=== PATIENT | female | born 1945 | race Two or more races ===

== ENCOUNTER 2017-05-10 21:24 | Emergency (ER) | payer MEDICARE, MEDICAID ==
[~2017-05-10] VITALS: Ht 154.9 cm; Wt 63.5 kg
[~2017-05-10 21:24] MED LIST: AMLO5TAB2 PO; ASPI-605 PO; CALC0.253 PO; CARV12.5 PO; CELE200C PO; ESOM10SU PO; FENO134C PO; FERR325T32 PO; GABA300C PO; INSU3INS5; INSU3INS6; METF500T PO; OLOP5DRO; OMEG1CAP55 PO; PRAM2.7P2 SQ; SOLI5TAB2 PO; TEMA15CA5 PO; VALS80TA2 PO
--- NOTE | 2017-05-10 21:57 | NUR ---
PT BIBA#39 FROM HOME, PER PT DAUGHTER PATIENT HAS BEEN ALTERED 1 HOUR ENVIRONMENTAL SERVICES TECH. PT AOX3 SOMALI SPEAKING, DAUGHTER AT BEDSIDE TO TRANSLATE. RR EVEN AND UNLABORED. NO SOB NOTED. NAD NOTED. NO NVD AT THIS TIME. PT NOT DIAPHROETIC. PT WAITING FOR MD CROW[place]. PER EMS PLACED IV ON RIGHT HAND 18G INTACT AND PATENT. NO S/S INFECTION OR INFILTRATION
--- NOTE | 2017-05-10 22:16 | NUR ---
PT TO CT.
--- NOTE | 2017-05-10 22:25 | NUR ---
PT RETURNED FROM CT.
[2017-05-10 22:49] LABS: BASOPHILS % (AUTO) 0.4 % (0.0-2.0); EOSINOPHILS % (AUTO) 0.4 % (0.0-6.0); HEMATOCRIT 31 % (33-45); HEMOGLOBIN 10.5 g/dL (11.5-14.8); LYMPHOCYTES # (AUTO) 0.8 /CMM (0.8-4.8); LYMPHOCYTES % (AUTO) 10.9 % (20.0-44.0); MEAN CORPUSCULAR HEMOGLOBIN 29 PG (26.0-33.0); MEAN CORPUSCULAR HGB CONC 34 g/dl (31.0-36.0); MEAN CORPUSCULAR VOLUME 84 fL (82-100); MONOCYTES # (AUTO) 0.4 /CMM (0.1-1.30); MONOCYTES % (AUTO) 5.8 % (2.0-12.0); NEUTROPHILS # (AUTO) 5.8 /CMM (1.8-8.9); NEUTROPHILS % (AUTO) 82.5 % (43.0-81.0); PLATELET COUNT (AUTO) 150 /CMM (150-450); RDW COEFFICIENT OF VARIATION 14.9 (11.5-15.0); RED BLOOD CELL COUNT(AUTO) 3.68 MIL/uL (4.0-5.2)
[2017-05-10] MEDS ORDERED: ACETAMINOPHEN 325 MG TABLET PO ONE (23:00)
[2017-05-10] MEDS ORDERED: ACETAMINOPHEN ES 500 MG TABLET ONE (23:06)
[2017-05-10 23:10] LABS: CALCIUM, SERUM 9.2 mg/dL (8.5-10.1); CREATININE 1.4 mg/dL (0.6-1.3); POTASSIUM 3.8 mmol/L (3.5-5.1)
[2017-05-10 23:17] LABS: INR 1.1 (0.87-1.13); PROTHROMBIN TIME 11.4 SECS (9.5-12.7)
[2017-05-10 23:29] LABS: TROPONIN I 0.031 ng/mL (0.00-0.056)
[2017-05-10 23:33] LABS: APPEARANCE,URINE CLEAR (CLEAR); BILIRUBIN,URINE NEGATIVE (NEGATIVE); BLOOD, URINE NEGATIVE Ery/uL (NEGATIVE); COLOR,URINE YELLOW (YELLOW); KETONES,URINE 1+ (NEGATIVE); LEUKOCYTE ESTERASE ,URINE NEGATIVE (NEGATIVE); NITRITE, URINE NEGATIVE (NEGATIVE); PH,URINE 5.5 (5.0-8.0); PROTEIN,URINE NEGATIVE (NEGATIVE); UGLUCOSE 3+ mg/dL (NEGATIVE); UROBILINOGEN,URINE 0.2 EU/dL (0.2)
[2017-05-10 23:37] LABS: BACTERIA,URINE Few /HPF (None Seen); RBC,URINE 0-2 /HPF (0-2); SQUAMOUS EPITHELIAL CELL,UR Few /HPF (None Seen); WBC,URINE 0-2 /HPF (0-3)
--- NOTE | 2017-05-10 23:52 | NUR ---
DR. CARLOS AT BEDSIDE SPEAKING TO PT AND DAUGHTER REGARDING RESULTS.
--- NOTE | 2017-05-11 00:10 | NUR ---
IV removed. Catheter intact and site benign. Pressure and 4x4 applied to site. No bleeding noted. Patient discharged to home in stable condition. Written and verbal after care instructions given. Patient verbalizes understanding of instruction. ambulatory with a steady gait. pt w/c per pt and family request.
[2017-05-11 00:11] VITALS: BP 158/68
== END 2017-05-11 00:12 | disposition home or self-care (01) ==
LOC: ER 21:31
DX: J06.9 Acute upper respiratory infection, unspecified (principal); R50.9 Fever, unspecified; E11.9 Type 2 diabetes mellitus without complications; G62.9 Polyneuropathy, unspecified; R51 Headache; I10 Essential (primary) hypertension; K21.9 Gastro-esophageal reflux disease without esophagitis; Z79.4 Long term (current) use of insulin; Z79.82 Long term (current) use of aspirin; Z86.73 Personal history of transient ischemic attack (TIA), and cerebral infarction without residual deficits; Z95.1 Presence of aortocoronary bypass graft
CPT/HCPCS: 36415; 70450; 71045; 80048; 80061; 81001; 84484; 85025; 85730; 93005; 99285; A4606; 81000-TC; Z7610

== ENCOUNTER 2023-11-17 18:19 | Inpatient (IN) | payer MEDICARE, OTHER ==
[~2023-11-17] VITALS: Ht 165.1 cm; Wt 69.9 kg
[~2023-11-17 18:19] MED LIST changes: +AMLO-212 PO; -AMLO5TAB2 PO
[2023-11-17] MEDS ORDERED: DEXTROSE 50%-WATER 50 ML DISP.SYRIN ONE (19:13)
[2023-11-17] MEDS: DEXTROSE 50%-WATER 50 ML DISP.SYRIN IV ONE (19:15)
[2023-11-17] MEDS: IV NS 0.9% 500 ML BAG IV ONE (19:19)
[2023-11-17 19:36] LABS: BASOPHILS % (AUTO) 0.3 % (0.0-2.0); EOSINOPHILS % (AUTO) 0.6 % (0.0-6.0); HEMATOCRIT 23 % (33-45); HEMOGLOBIN 7.7 g/dL (11.5-14.8); LYMPHOCYTES # (AUTO) 1.3 K/uL (0.8-4.8); LYMPHOCYTES % (AUTO) 18.5 % (20.0-44.0); MEAN CORPUSCULAR HEMOGLOBIN 28 PG (26.0-33.0); MEAN CORPUSCULAR HGB CONC 33 g/dl (31.0-36.0); MEAN CORPUSCULAR VOLUME 85 fL (82-100); MONOCYTES # (AUTO) 0.8 K/uL (0.1-1.30); MONOCYTES % (AUTO) 11.8 % (2.0-12.0); NEUTROPHILS # (AUTO) 4.7 K/uL (1.8-8.9); NEUTROPHILS % (AUTO) 68.8 % (43.0-81.0); PLATELET COUNT (AUTO) 321 K/uL (150-450); RED BLOOD CELL COUNT(AUTO) 2.72 MIL/uL (4.0-5.2); RED CELL DISTRIBUTION WIDTH 16.3 % (11.5-15.0); WHITE BLOOD COUNT (AUTO) 6.8 K/uL (4.3-11.0)
[2023-11-17 19:46] LABS: CALCIUM, SERUM 9.1 mg/dL (8.5-10.1); CARBON DIOXIDE 28 mmol/L (21-32); CHLORIDE 98 mmol/L (98-107); CREATININE 1.8 mg/dL (0.6-1.3); GLUCOSE 244 mg/dL (74-106); POTASSIUM 3.9 mmol/L (3.5-5.1); SODIUM SERUM 132 mmol/L (136-145); UREA NITROGEN, BLOOD 44 mg/dL (7-18)
[2023-11-17 19:48] LABS: INR 1.07 (0.91-1.10); PARTIAL THROMBOPLASTIN TIME 34.5 SEC (24.3-34.3)
[2023-11-17 19:52] LABS: ALANINE AMINOTRANSFERASE 70 U/L (12-78); ALBUMIN 2.6 g/dL (3.4-5.0); ALCOHOL, BLOOD < 3 mg/dL (0-10); ALKALINE PHOSPHATASE 33 U/L (46-116); ASPARTATE AMINOTRANSFERASE 57 U/L (15-37); BILIRUBIN,DIRECT 0.1 mg/dL (0.0-0.2); BILIRUBIN,TOTAL 0.2 mg/dL (0.2-1.0); TOTAL PROTEIN, SERUM 6.7 g/dL (6.4-8.2)
[2023-11-17 19:53] LABS: SALICYLATE 1.9 mg/dL (2.8-20.0)
[2023-11-17 19:54] LABS: LACTIC ACID 1.4 mmol/L (0.4-2.0)
[2023-11-17 20:09] LABS: APPEARANCE,URINE Clear (CLEAR); BILIRUBIN,URINE Negative (NEGATIVE); BLOOD, URINE Negative Ery/uL (NEGATIVE); COLOR,URINE YELLOW (YELLOW); KETONES,URINE Negative (NEGATIVE); LEUKOCYTE ESTERASE ,URINE Trace (NEGATIVE); NITRITE, URINE Negative (NEGATIVE); PH,URINE 5.5 (5.0-8.0); PROTEIN,URINE Negative (NEGATIVE); UGLUCOSE Negative (NEGATIVE); UROBILINOGEN,URINE 0.2 EU/dL (0.2)
[2023-11-17 20:24] LABS: AMPHETAMINE, URINE NEGATIVE (NEGATIVE); BARBITURATE, URINE NEGATIVE (NEGATIVE); BENZODIAZEPINE, URINE NEGATIVE (NEGATIVE); CANNABINOID, URINE NEGATIVE (NEGATIVE); COCCAINE, URINE NEGATIVE (NEGATIVE); OPIATE, URINE NEGATIVE (NEGATIVE); PHENCYCLIDINE SCREEN,URINE NEGATIVE (NEGATIVE)
[2023-11-17] MEDS ORDERED: ACETAMINOPHEN ES 500 MG TABLET ONE (20:26)
[2023-11-17] MEDS: ACETAMINOPHEN ES 500 MG TABLET PO ONE (20:30)
[2023-11-17 20:31] LABS: SERUM AMMONIA 25 umol/L (11-32)
[2023-11-17 20:32] LABS: ADD URINE CULTURE NO; BACTERIA,URINE Few /HPF (None Seen); RBC,URINE 0-2 /HPF (0-2); SQUAMOUS EPITHELIAL CELL,UR Few /HPF (None Seen)
[2023-11-17] MEDS ORDERED: TEMAZEPAM 15 MG CAPSULE PO SCH (22:00)
[2023-11-17] MEDS ORDERED: MAG HYDROX/AL HYDROX/SIMETH 30 ML UDC PO PRN (22:00)
[2023-11-17] MEDS ORDERED: CELECOXIB 200 MG PO SCH (22:00)
[2023-11-17] MEDS ORDERED: Z GUARD REMEDY 4 OZ OINT TP PRN (22:00)
[2023-11-17] MEDS ORDERED: ZOLPIDEM TARTRATE 5 MG TABLET PO PRN (22:00)
[2023-11-17] MEDS ORDERED: MAGNESIUM HYDROXIDE 30 ML UDC PO PRN (22:00)
[2023-11-18] VITALS (9 sets, daily range): BP systolic 122–154; BP diastolic 58–82; TEMP 97.7–99.7; O2SAT 96–100
[2023-11-18] MEDS: ASPIRIN EC 81 MG TABLET.DR PO SCH (01:58)
[2023-11-18] MEDS: FERROUS SULFATE (325 MG) 325 MG/TAB TABLET PO SCH (01:59)
[2023-11-18] MEDS: ENOXAPARIN SODIUM 30 MG/0.3 ML DISP.SYRIN SQ SCH (02:00)
[2023-11-18] MEDS: BLOOD SUGAR DIAGNOSTIC 1 EACH STRIP IN ONE (02:38)
[2023-11-18] MEDS: IV NS 0.9% 1,000 ML IV PRN (02:40)
[2023-11-18] MEDS: PANTOPRAZOLE 40 MG TABLET.DR PO SCH ×2 (06:48→08:36)
[2023-11-18 07:46] LABS: BASOPHILS % (AUTO) 0.3 % (0.0-2.0); EOSINOPHILS % (AUTO) 0.6 % (0.0-6.0); HEMATOCRIT 24 % (33-45); HEMOGLOBIN 8.2 g/dL (11.5-14.8); LYMPHOCYTES # (AUTO) 0.6 K/uL (0.8-4.8); LYMPHOCYTES % (AUTO) 13.5 % (20.0-44.0); MEAN CORPUSCULAR HEMOGLOBIN 29 PG (26.0-33.0); MEAN CORPUSCULAR HGB CONC 34 g/dl (31.0-36.0); MEAN CORPUSCULAR VOLUME 86 fL (82-100); MONOCYTES # (AUTO) 0.6 K/uL (0.1-1.30); MONOCYTES % (AUTO) 13.1 % (2.0-12.0); NEUTROPHILS # (AUTO) 3.5 K/uL (1.8-8.9); NEUTROPHILS % (AUTO) 72.5 % (43.0-81.0); PLATELET COUNT (AUTO) 245 K/uL (150-450); RED BLOOD CELL COUNT(AUTO) 2.77 MIL/uL (4.0-5.2); RED CELL DISTRIBUTION WIDTH 16.4 % (11.5-15.0); WHITE BLOOD COUNT (AUTO) 4.8 K/uL (4.3-11.0)
[2023-11-18 08:05] LABS: ALANINE AMINOTRANSFERASE 86 U/L (12-78); ALBUMIN 2.3 g/dL (3.4-5.0); ALKALINE PHOSPHATASE 41 U/L (46-116); ASPARTATE AMINOTRANSFERASE 71 U/L (15-37); BILIRUBIN,DIRECT 0.1 mg/dL (0.0-0.2); BILIRUBIN,TOTAL 0.2 mg/dL (0.2-1.0); CALCIUM, SERUM 8.9 mg/dL (8.5-10.1); CARBON DIOXIDE 26 mmol/L (21-32); CHLORIDE 101 mmol/L (98-107); CREATININE 1.4 mg/dL (0.6-1.3); GLUCOSE 201 mg/dL (74-106); PHOSPHORUS 2.7 mg/dL (2.5-4.9); POTASSIUM 4.2 mmol/L (3.5-5.1); SODIUM SERUM 137 mmol/L (136-145); TOTAL PROTEIN, SERUM 6.5 g/dL (6.4-8.2); UREA NITROGEN, BLOOD 34 mg/dL (7-18)
[2023-11-18] MEDS: CARVEDILOL 12.5 MG TABLET PO SCH (08:34)
[2023-11-18] MEDS: GABAPENTIN 300 MG CAPSULE PO SCH (08:35)
[2023-11-18] MEDS: AMLODIPINE BESYLATE 5 MG TABLET PO SCH (08:35)
[2023-11-18] MEDS: CALCITRIOL 0.25 MCG CAPSULE PO SCH (08:35)
[2023-11-18] MEDS: VALSARTAN 80 MG TABLET PO SCH (08:36)
[2023-11-18] MEDS ORDERED: Medication Not On Formulary EA (Omega-3 Acid Ethyl Esters (Lovaza) 1 GM) PO SCH (09:00)
[2023-11-18] MEDS: OLOPATADINE HCL 0.1% OPHTH BOTTLE RIGHTEYE SCH (09:00)
[2023-11-18] MEDS ORDERED: METFORMIN 500 MG TABLET PO SCH (09:00)
[2023-11-18] MEDS ORDERED: PRAMLINTIDE ACETATE SQ SCH (09:00)
[2023-11-18] MEDS ORDERED: DEXTROSE 50%-WATER 50 ML DISP.SYRIN IV PRN (09:30)
[2023-11-18] MEDS: INSULIN REGULAR, HUMAN 100 UNIT/ML 3 ML VIAL SQ PRN (09:31)
[2023-11-18] MEDS: BLOOD SUGAR DIAGNOSTIC 1 EACH STRIP IN SCH (09:38)
[2023-11-18] MEDS ORDERED: INSU100I4 SQ (10:11)
[2023-11-18] MEDS ORDERED: EZET10TA15 PO (10:11)
[2023-11-18] MEDS ORDERED: CLON1PAT13 TD (10:11)
[2023-11-18] MEDS ORDERED: DULA0.75 SQ (10:11)
[2023-11-18] MEDS ORDERED: ICOS1CAP PO (10:11)
[2023-11-18] MEDS ORDERED: LOSA25TA27 PO (10:11)
[2023-11-18] MEDS ORDERED: HYDR25TA4 PO (10:11)
[2023-11-18] MEDS ORDERED: INSU100I24 SQ (10:11)
[2023-11-18] MEDS ORDERED: FAMO-130 PO (10:11)
[2023-11-18] MEDS ORDERED: TIOT18CA3 IH (10:11)
[2023-11-18] MEDS ORDERED: CARV6.25 PO (10:11)
[2023-11-18] MEDS ORDERED: ALBU8.5H8 IH (10:11)
[2023-11-18] MEDS ORDERED: IMMU1VIA SQ (10:11)
[2023-11-18] MEDS ORDERED: HYDR-4076 PO (10:11)
[2023-11-18] MEDS ORDERED: ISOS60TA72 PO (10:11)
[2023-11-18] MEDS ORDERED: EVOL140P3 SQ (10:24)
[2023-11-18] MEDS ORDERED: ONDA4TAB5 PO (10:47)
[2023-11-18] MEDS ORDERED: OLOP2.5D12 EACHEYE (10:47)
[2023-11-18] MEDS ORDERED: POLY17PO4 PO (10:47)
[2023-11-18] MEDS ORDERED: IPRATROPIUM HALF ST 0.25 MG/1.25 ML VIAL.NEB IH SCH (12:00)
[2023-11-18] MEDS: ALBUTEROL FS 2.5 MG/3 ML VIAL.NEB NEB SCH (13:11)
[2023-11-18] MEDS: IPRATROPIUM NEB FS 0.5 MG/2.5 ML AMPUL.NEB NEB SCH (13:11)
[2023-11-18] MEDS: CLONIDINE HCL 0.2MG/24H PTWK 1 EA PATCH TD SCH (13:33)
[2023-11-18] MEDS: SOD FERRIC GLUC 125 MG in IV NS 0.9% 100 ML IV SCH (13:36)
[2023-11-18] MEDS: BENZONATATE 100 MG CAPSULE PO PRN (14:52)
[2023-11-18] MEDS: CARVEDILOL 6.25 MG TABLET PO SCH (16:46)
[2023-11-18] MEDS: LOSARTAN POTASSIUM 25 MG TABLET PO SCH (17:54)
[2023-11-18] MEDS ORDERED: ACETAMINOPHEN 650 MG/20 ML UDC- SA PATIENTS-FEVER ONLY PO PRN (19:30)
[2023-11-18] MEDS: ACETAMINOPHEN 325 MG TABLET PO PRN (19:52)
[2023-11-18] MEDS ORDERED: CEFEPIME 1 GM VIAL ONE (20:40)
[2023-11-18] MEDS: CEFEPIME 1 GM in IV D5W 50 ML IV SCH (20:44)
[2023-11-19] VITALS (10 sets, daily range): BP systolic 136–165; BP diastolic 49–75; TEMP 97.7–99.3; O2SAT 94–100
[2023-11-19] MEDS: hydrALAZINE HCL 25 MG TABLET PO PRN (04:13)
[2023-11-19 07:36] LABS: BASOPHILS % (AUTO) 0.3 % (0.0-2.0); EOSINOPHILS # (AUTO) 0.1 K/uL (0.0-0.7); HEMATOCRIT 23 % (33-45); HEMOGLOBIN 7.8 g/dL (11.5-14.8); LYMPHOCYTES # (AUTO) 0.6 K/uL (0.8-4.8); LYMPHOCYTES % (AUTO) 10.7 % (20.0-44.0); MEAN CORPUSCULAR HEMOGLOBIN 29 PG (26.0-33.0); MEAN CORPUSCULAR HGB CONC 34 g/dl (31.0-36.0); MEAN CORPUSCULAR VOLUME 87 fL (82-100); MONOCYTES # (AUTO) 0.6 K/uL (0.1-1.30); MONOCYTES % (AUTO) 10.6 % (2.0-12.0); NEUTROPHILS # (AUTO) 4.6 K/uL (1.8-8.9); NEUTROPHILS % (AUTO) 77.4 % (43.0-81.0); PLATELET COUNT (AUTO) 246 K/uL (150-450); RED BLOOD CELL COUNT(AUTO) 2.67 MIL/uL (4.0-5.2); RED CELL DISTRIBUTION WIDTH 16.3 % (11.5-15.0); WHITE BLOOD COUNT (AUTO) 5.9 K/uL (4.3-11.0)
[2023-11-19 07:57] LABS: CALCIUM, SERUM 8.3 mg/dL (8.5-10.1); CARBON DIOXIDE 29 mmol/L (21-32); CHLORIDE 102 mmol/L (98-107); CREATININE 1.4 mg/dL (0.6-1.3); GLUCOSE 296 mg/dL (74-106); SODIUM SERUM 137 mmol/L (136-145); UREA NITROGEN, BLOOD 25 mg/dL (7-18)
[2023-11-19] MEDS: GLUCERNA SHAKE 237 ML CAN PO SCH (08:54)
[2023-11-19] MEDS: POLYETHYLENE GLYCOL 3350 17 GM POWD.PACK PO SCH (08:59)
[2023-11-19] MEDS ORDERED: ISOSORBIDE MONONITRATE 60 MG TAB.SR.24H PO SCH (09:00)
[2023-11-19] MEDS ORDERED: OLOPATADINE HCL 0.1% OPHTH BOTTLE EACHEYE PRN (09:00)
[2023-11-19] MEDS: FENOFIBRATE NANOCRYS (145 MG) 145 MG TABLET PO SCH (09:00)
[2023-11-19] MEDS: EZETIMIBE 10 MG TABLET PO SCH (09:00)
[2023-11-19] MEDS ORDERED: HYDROCHLOROTHIAZIDE 25 MG TABLET PO SCH (09:00)
[2023-11-19] MEDS ORDERED: DEXTROSE 50%-WATER 50 ML DISP.SYRIN IV PRN ×2 (10:00→21:00)
[2023-11-19] MEDS: methylPREDNISolone SOD SUCC 125 MG/2ML VIAL IV SCH (10:03)
[2023-11-19] MEDS: ICOSAPENT ETHYL 2 GM PO SCH (10:03)
[2023-11-19] MEDS: INSULIN REGULAR, HUMAN 100 UNIT/ML 3 ML VIAL SQ PRN (10:12)
[2023-11-19] MEDS: ONDANSETRON HCL/PF 4 MG/2 ML VIAL IVP PRN (10:14)
[2023-11-19] MEDS: ISOSORBIDE MONONITRATE (30MG) 30 MG TAB.SR.24H PO SCH (10:26)
[2023-11-19] MEDS: methylPREDNISolone SOD SUCC 40 MG/ML VIAL IV SCH (10:26)
[2023-11-19] MEDS: BLOOD SUGAR DIAGNOSTIC 1 EACH STRIP IN SCH (11:06)
[2023-11-19] MEDS: INSULIN DEGLUDEC 28 UNIT SQ SCH (11:56)
[2023-11-19] MEDS ORDERED: INSULIN REGULAR, HUMAN 100 UNIT/ML 3 ML VIAL SQ PRN (21:00)
[2023-11-19] MEDS: INSULIN REGULAR, HUMAN 100 UNIT/ML 3 ML VIAL SQ ONE (21:24)
[2023-11-19] MEDS ORDERED: CEFEPIME 1 GM VIAL ONE (22:11)
[2023-11-19] MEDS: CEFEPIME 1 GM in IV NS 0.9% 50 ML IV SCH (22:19)
[2023-11-20] VITALS (9 sets, daily range): BP systolic 129–153; BP diastolic 50–58; TEMP 97.3–98.2; O2SAT 90–100
[2023-11-20] MEDS: BLOOD SUGAR DIAGNOSTIC 1 EACH STRIP IN SCH ×2 (00:29→05:11)
[2023-11-20] MEDS: INSULIN REGULAR, HUMAN 100 UNIT/ML 3 ML VIAL SQ PRN (00:32)
[2023-11-20 07:16] LABS: ALANINE AMINOTRANSFERASE 103 U/L (12-78); ALBUMIN 2.2 g/dL (3.4-5.0); ALKALINE PHOSPHATASE 46 U/L (46-116); ASPARTATE AMINOTRANSFERASE 103 U/L (15-37); BILIRUBIN,DIRECT 0.1 mg/dL (0.0-0.2); BILIRUBIN,TOTAL 0.2 mg/dL (0.2-1.0); CALCIUM, SERUM 8.9 mg/dL (8.5-10.1); CARBON DIOXIDE 23 mmol/L (21-32); CHLORIDE 105 mmol/L (98-107); CREATININE 1.4 mg/dL (0.6-1.3); GLUCOSE 218 mg/dL (74-106); POTASSIUM 4.8 mmol/L (3.5-5.1); SODIUM SERUM 138 mmol/L (136-145); TOTAL PROTEIN, SERUM 6.7 g/dL (6.4-8.2); UREA NITROGEN, BLOOD 29 mg/dL (7-18)
[2023-11-20 07:17] LABS: BASOPHILS % (AUTO) 0.3 % (0.0-2.0); HEMATOCRIT 25 % (33-45); HEMOGLOBIN 8.4 g/dL (11.5-14.8); LYMPHOCYTES # (AUTO) 0.7 K/uL (0.8-4.8); LYMPHOCYTES % (AUTO) 9.4 % (20.0-44.0); MEAN CORPUSCULAR HEMOGLOBIN 29 PG (26.0-33.0); MEAN CORPUSCULAR HGB CONC 34 g/dl (31.0-36.0); MEAN CORPUSCULAR VOLUME 87 fL (82-100); MONOCYTES # (AUTO) 0.3 K/uL (0.1-1.30); MONOCYTES % (AUTO) 3.6 % (2.0-12.0); NEUTROPHILS # (AUTO) 6.2 K/uL (1.8-8.9); NEUTROPHILS % (AUTO) 86.7 % (43.0-81.0); PLATELET COUNT (AUTO) 275 K/uL (150-450); RED BLOOD CELL COUNT(AUTO) 2.87 MIL/uL (4.0-5.2); RED CELL DISTRIBUTION WIDTH 16.1 % (11.5-15.0); WHITE BLOOD COUNT (AUTO) 7.2 K/uL (4.3-11.0)
[2023-11-20 07:32] LABS: IRON, SERUM 97 ug/dl (50-175); TOTAL IRON BINDING CAPACITY 262 ug/dl (250-450)
[2023-11-20 07:46] LABS: ERYTHROCYTE SEDIMENTATION RATE 55 MM/HR (0-30)
[2023-11-20 07:49] LABS: FERRITIN 1464 ng/mL (8-388)
[2023-11-20 07:52] LABS: C-REACTIVE PROTEIN 10.87 mg/dL (0.0-0.30)
[2023-11-20 08:09] LABS: RHEUMATOID FACTOR SCREEN NEGATIVE (NEGATIVE)
[2023-11-20] MEDS: methylPREDNISolone SOD SUCC 40 MG/ML VIAL IV SCH (09:52)
[2023-11-20] MEDS: MAGNESIUM HYDROXIDE 30 ML UDC PO ONE (10:59)
[2023-11-20] MEDS ORDERED: methylPREDNISolone SOD SUCC 40 MG/ML VIAL IV SCH (13:00)
[2023-11-20] MEDS: TRAMADOL HCL 50 MG TABLET PO ONE (14:06)
[2023-11-20 18:15] LABS: CALCIUM, SERUM 8.6 mg/dL (8.5-10.1); CARBON DIOXIDE 27 mmol/L (21-32); CHLORIDE 100 mmol/L (98-107); CREATININE 1.4 mg/dL (0.6-1.3); POTASSIUM 4.9 mmol/L (3.5-5.1); SODIUM SERUM 133 mmol/L (136-145); UREA NITROGEN, BLOOD 32 mg/dL (7-18)
[2023-11-20 18:32] LABS: GLUCOSE 418 mg/dL (74-106)
[2023-11-20] MEDS ORDERED: INSULIN GLARGINE, 100 UNIT/ML CARTRIDGE SQ SCH (22:00)
[2023-11-21] VITALS (8 sets, daily range): BP systolic 134–150; BP diastolic 44–55; TEMP 97.5–98.6; O2SAT 93–100
[2023-11-21 05:11] LABS: FOLIC ACID 9.9 ng/mL (>3.0)
[2023-11-21 07:24] LABS: BASOPHILS % (AUTO) 0.2 % (0.0-2.0); EOSINOPHILS # (AUTO) 0.1 K/uL (0.0-0.7); EOSINOPHILS % (AUTO) 0.9 % (0.0-6.0); HEMATOCRIT 25 % (33-45); HEMOGLOBIN 8.4 g/dL (11.5-14.8); LYMPHOCYTES # (AUTO) 0.9 K/uL (0.8-4.8); LYMPHOCYTES % (AUTO) 9.4 % (20.0-44.0); MEAN CORPUSCULAR HEMOGLOBIN 30 PG (26.0-33.0); MEAN CORPUSCULAR HGB CONC 34 g/dl (31.0-36.0); MEAN CORPUSCULAR VOLUME 86 fL (82-100); MONOCYTES # (AUTO) 0.6 K/uL (0.1-1.30); MONOCYTES % (AUTO) 6.7 % (2.0-12.0); NEUTROPHILS # (AUTO) 7.8 K/uL (1.8-8.9); NEUTROPHILS % (AUTO) 82.8 % (43.0-81.0); PLATELET COUNT (AUTO) 328 K/uL (150-450); RED BLOOD CELL COUNT(AUTO) 2.85 MIL/uL (4.0-5.2); RED CELL DISTRIBUTION WIDTH 16.7 % (11.5-15.0); WHITE BLOOD COUNT (AUTO) 9.4 K/uL (4.3-11.0)
[2023-11-21] MEDS ORDERED: *INSULIN REGULAR(HUMULIN R)HUM 100 UNIT/ML VIAL SQ PRN (07:30)
[2023-11-21] MEDS ORDERED: DEXTROSE 50%-WATER 50 ML DISP.SYRIN IV PRN (07:30)
[2023-11-21 07:47] LABS: CALCIUM, SERUM 9.2 mg/dL (8.5-10.1); CARBON DIOXIDE 25 mmol/L (21-32); CHLORIDE 104 mmol/L (98-107); CREATININE 1.4 mg/dL (0.6-1.3); GLUCOSE 109 mg/dL (74-106); POTASSIUM 4.4 mmol/L (3.5-5.1); SODIUM SERUM 140 mmol/L (136-145); UREA NITROGEN, BLOOD 34 mg/dL (7-18)
[2023-11-21 08:07] LABS: CANCER AG, 125 11.1 U/mL (0.0-38.1); CARBOHYDRATE AG 19-9 24 U/mL (0-35); IMMUNOGLOBULIN A, SERUM 64 mg/dL (64-422); IMMUNOGLOBULIN G, SERUM 641 mg/dL (586-1602); IMMUNOGLOBULIN M, SERUM 23 mg/dL (26-217)
[2023-11-21] MEDS: BLOOD SUGAR DIAGNOSTIC 1 EACH STRIP VI SCH (08:25)
[2023-11-21 11:08] LABS: BAND % (MANUAL) 1 % (0.0-5.0); LYMPHOCYTES % (MANUAL) 11 % (16-48); MONOCYTES % (MANUAL) 4 % (0-11.0); MYELOCYTES % 1 % (0-0); NEUTROPHILS % (MANUAL) 83 (42-76); PLATELET ESTIMATE ADEQUATE
[2023-11-21 11:11] LABS: *ANA ANTI-CENTROMERE B AB <0.2 AI (0.0-0.9); *ANA ANTI-DNA(DS) AB, QN 5 IU/mL (0-9); *ANA ANTI-JO-1 <0.2 AI (0.0-0.9); *ANA ANTICHROMATIN ANTIBODY <0.2 AI (0.0-0.9); *ANA RNP ANTIBODIES 0.2 AI (0.0-0.9); *ANA SJOGREN'S ANTI-SS-A <0.2 AI (0.0-0.9); *ANA SJOGREN'S ANTI-SS-B <0.2 AI (0.0-0.9); *ANAANTI-SCLERODERMA-70 AB <0.2 AI (0.0-0.9); *ANASMITH AB <0.2 AI (0.0-0.9); FREE KAPPA LT CHAINS SERUM 21.5 mg/L (3.3-19.4); FREE LAMBDA LT CHAIN SERUM 14.3 mg/L (5.7-26.3)
[2023-11-21] MEDS ORDERED: IPRA3AMP23 IH (13:19)
[2023-11-21] MEDS ORDERED: ALBU8.5H8 IH (13:19)
[2023-11-21] MEDS ORDERED: LEVO500T90 PO (13:19)
[2023-11-21] MEDS ORDERED: METH4TAB3 PO (13:19)
[2023-11-21] MEDS ORDERED: BUDE10.22 INH (13:19)
[2023-11-21] MEDS: INSULIN REGULAR, HUMAN 100 UNIT/ML 3 ML VIAL SQ PRN (13:54)
[2023-11-21] MEDS: (Dulaglutide (Trulicity) 0.75 MG) SQ SCH (15:02)
[2023-11-21] MEDS: EVOLOCUMAB 140 MG SQ SCH (15:03)
[2023-11-21 19:30] LABS: OCCULT BLOOD STOOL POSITIVE (NEGATIVE)
[2023-11-22 08:08] LABS: *SPE A/G RATIO 0.7 (0.7-1.7); *SPE ALBUMIN 2.5 g/dL (2.9-4.4); *SPE ALPHA-1-GLOBULIN 0.5 g/dL (0.0-0.4); *SPE ALPHA-2-GLOBULIN 1.4 g/dL (0.4-1.0); *SPE GLOBULIN, TOTAL 3.5 g/dL (2.2-3.9); *SPE M-SPIKE Not Observed g/dL (Not Observed); *SPEGAMMA GLOBULIN 0.7 g/dL (0.4-1.8)
== END 2023-11-21 18:54 | disposition home health service (06) | DRG 640 ==
LOC: ER 18:21 → TELE1 23:08 → MEDSG1 11-19 10:00
PROVIDERS: ADMIT Nurse Practitioner Family; ATTEND Nurse Practitioner Family
DX: E86.0 Dehydration (principal); N17.0 Acute kidney failure with tubular necrosis; I50.32 Chronic diastolic (congestive) heart failure; E44.0 Moderate protein-calorie malnutrition; G93.40 Encephalopathy, unspecified; J45.901 Unspecified asthma with (acute) exacerbation; E86.9 Volume depletion, unspecified; I11.0 Hypertensive heart disease with heart failure; Z20.822 Contact with and (suspected) exposure to COVID-19; E87.1 Hypo-osmolality and hyponatremia; E11.40 Type 2 diabetes mellitus with diabetic neuropathy, unspecified; E11.65 Type 2 diabetes mellitus with hyperglycemia; Z79.82 Long term (current) use of aspirin; Z79.84 Long term (current) use of oral hypoglycemic drugs; Z79.4 Long term (current) use of insulin; W18.30XA Fall on same level, unspecified, initial encounter; Y92.9 Unspecified place or not applicable; D50.9 Iron deficiency anemia, unspecified; E88.09 Other disorders of plasma-protein metabolism, not elsewhere classified; E78.5 Hyperlipidemia, unspecified; E04.2 Nontoxic multinodular goiter; E86.1 Hypovolemia; I25.10 Atherosclerotic heart disease of native coronary artery without angina pectoris; K21.9 Gastro-esophageal reflux disease without esophagitis; Z79.899 Other long term (current) drug therapy; Z86.73 Personal history of transient ischemic attack (TIA), and cerebral infarction without residual deficits; Z90.710 Acquired absence of both cervix and uterus; Z95.1 Presence of aortocoronary bypass graft; Z98.890 Other specified postprocedural states; Z74.09 Other reduced mobility
CPT/HCPCS: 36415; 70220-TC; 70450-TC; 71045-TC; 71250-TC; 76536-TC; 80048-TC; 80076-TC; 81001; 82140-TC; 82232; 82272-TC; 82378; 82607-TC; 82728-TC; 82784; 82962-TC; 83540-TC; 83605-TC; 83615-TC; 83735-TC; 84100-TC; 84155; 84165; 84443-TC; 84484-TC; 85025-TC; 85652-TC; 85730-TC; 86140-TC; 86225; 86235; 86301; 86304; 86334; 86431-TC; 87040-TC; 87086-TC; 92526; 92611-TC; 93307-TC; 94761-TC; 94799-TC; 97110-TC; 97116-TC; 97530-TC; A4223; G0378; G0480; J0692; J1650; J1815; J2405; J2916; J2919; J7030; J7060